=== PATIENT | male | born 1940 | race Caucasian/White ===

== ENCOUNTER 2017-12-25 21:37 | Inpatient (IN) | payer MEDICARE, OTHER, BC ==
[~2017-12-25] VITALS: Ht 167.6 cm; Wt 54.0 kg
[2017-12-25] MEDS ORDERED: BIMA2.5D5 EACHEYE (22:06)
[2017-12-25] MEDS ORDERED: TRIH2TAB3 PO (22:06)
[2017-12-25] MEDS ORDERED: RASA1TAB4 PO (22:06)
[2017-12-25] MEDS ORDERED: CARB-93 PO (22:06)
[2017-12-25] MEDS ORDERED: DORZ10DR11 EACHEYE (22:06)
[2017-12-25] MEDS ORDERED: ACET-73 PO (22:06)
[2017-12-25] MEDS ORDERED: ROPI1TAB2 PO (22:06)
[2017-12-25] MEDS ORDERED: ENTA200T PO (22:06)
[2017-12-25] MEDS ORDERED: IBUP200C76 PO (22:06)
--- NOTE | 2017-12-25 22:23 | NUR ---
Medically Cleared by ERMD
--- NOTE | 2017-12-25 22:40 | NUR ---
Passed report to Mental health ALEC Allen
[2017-12-25 23:15] VITALS: BP 136/76
[2017-12-25] MEDS ORDERED: MAG HYDROX/AL HYDROX/SIMETH 30 ML LIQUID UDC PO PRN (23:30)
[2017-12-25] MEDS ORDERED: MAGNESIUM HYDROXIDE 30 ML LIQUID UDC PO PRN (23:30)
[2017-12-25] MEDS ORDERED: ZOLPIDEM 5 MG TABLET PO PRN (23:30)
[2017-12-25] MEDS ORDERED: ACETAMINOPHEN 325 MG TABLET PO PRN (23:30)
[2017-12-25] MEDS ORDERED: LORAZEPAM 0.5 MG TABLET PO PRN (23:30)
--- NOTE | 2017-12-25 23:30 | NUR ---
GPS: 77 YEAR OLD [place] BORN MALE ADMITTED FROM ER TO M[facility] UNDER DR LÓPEZ AND DR ASIM CARPENTER. DX OF PSYCHOSIS/ GD. A/O X2 TO NAME AND PLACE , COOPERATIVE. V/S WNL. ASSISTED WITH ASL'S. ASSISTED IN BED. PATIENT RESTING IN BED NO AGITATION NOTED AT THIS TIME.BED ALARM ON.BELONGING LIST COMPLETED.NO S/S OF PAIN OR DISCOMFORT NOTED.
--- NOTE | 2017-12-26 06:44 | NUR ---
GPS: REMAIN CALM AND COOPERATIVE WITH NURSING CARE. ASSISTED WITH ADL'S. INCONTINENT. SLEPT 7 HRS THROUGH THE NIGHT. NO AGITATION NOTED @ THIS TIME. CONTINUE MONITORING FOR SAFETY.
[2017-12-26 07:30] VITALS: BP 163/82
[2017-12-26] MEDS ORDERED: CARBIDOPA/LEVODOPA 25-100MG TABLET PO SCH (09:00)
[2017-12-26] MEDS: TRIHEXYPHENIDYL HCL 2 MG TABLET PO SCH ×6 (09:00→20:35)
[2017-12-26] MEDS ORDERED: BIMATOPROST 0.01% OPHT DROP 2.5 ML BOTTLE EACHEYE SCH (09:00)
[2017-12-26] MEDS ORDERED: Medication Not On Formulary EA (Rasagiline Mesylate 1 MG) PO SCH (09:00)
[2017-12-26] MEDS ORDERED: DORZOLAMIDE/TIMOLOL OPHT DROP 10 ML BOTTLE EACHEYE SCH (09:00)
[2017-12-26 09:24] LABS: BASOPHILS % (AUTO) 0.6 % (0.0-2.0); EOSINOPHILS # (AUTO) 0.1 K/uL (0.0-0.7); HEMATOCRIT 40.4 % (36.7-47.1); HEMOGLOBIN 13.7 g/dL (12.5-16.3); LYMPHOCYTES # (AUTO) 1.4 K/uL (20.0-40.0); LYMPHOCYTES % (AUTO) 18.2 % (20.5-51.5); MEAN CORPUSCULAR HEMOGLOBIN 29.8 uug (23.8-33.4); MEAN CORPUSCULAR HGB CONC 34 g/dL (32.5-36.3); MEAN CORPUSCULAR VOLUME 87.9 fL (73.0-96.2); MONOCYTES # (AUTO) 0.4 K/uL (2.0-10.0); MONOCYTES % (AUTO) 4.8 % (0.0-11.0); NEUTROPHILS # (AUTO) 5.9 K/uL (1.8-8.9); NEUTROPHILS % (AUTO) 75.4 % (38.5-71.5); PLATELET COUNT (AUTO) 214 K/uL (152-348); RED BLOOD CELL COUNT(AUTO) 4.59 MIL/uL (4.06-5.63); WHITE BLOOD COUNT (AUTO) 7.9 K/uL (3.6-10.2)
[2017-12-26 09:29] LABS: CARBON DIOXIDE 26 mmol/L (21-32); CHLORIDE 103 mmol/L (98-107); CREATININE 1.1 mg/dL (0.6-1.3); GLUCOSE 91 mg/dL (74-106); POTASSIUM 4.1 mmol/L (3.5-5.1); UREA NITROGEN, BLOOD 22 mg/dL (7-18)
[2017-12-26 09:43] LABS: THYROID STIMULATING HORMONE 2.248 mIU/mL (0.358-3.740)
[2017-12-26] MEDS ORDERED: IBUPROFEN 200 MG TABLET PO PRN (10:00)
[2017-12-26] MEDS ORDERED: ropiniROLE 1 MG TABLET PO SCH (10:00)
[2017-12-26] MEDS ORDERED: CARB-95 PO (13:19)
[2017-12-26] MEDS: ropiniROLE 1 MG TABLET PO SCH ×3 (13:20→20:40)
[2017-12-26] MEDS: ENTACAPONE 200 MG TABLET PO SCH ×3 (13:20→20:36)
[2017-12-26] MEDS: CARBIDOPA/LEVODOPA 25-100MG TABLET PO SCH ×3 (13:21→20:34)
[2017-12-26 17:39] VITALS: BP 119/72
[2017-12-26 20:26] VITALS: BP 120/72
[2017-12-26] MEDS: QUETIAPINE FUMARATE 25 MG TABLET PO SCH (20:34)
[2017-12-26] MEDS: CARBIDOPA/LEVODOPA CR 25-100MG TABLET.SA PO SCH (20:35)
[2017-12-26] MEDS: LATANOPROST OPHT DROP 2.5 ML BOTTLE OP SCH (20:41)
--- NOTE | 2017-12-26 22:34 | NUR ---
PATIENT RECEIVED IN BED AWAKE. PATIENT CALM, COOPERATIVE UPON APPROACH. PATIENT COMPLAINT WITH MEDICATION WITH PROMPTING NOTED. NO AGGRESSIVE OR COMBATIVE BEHAVIOR NOTED WILL CONTINUE TO MONITOR. PATIENT DENIES PAIN AT THIS TIME, WILL CONTINUE TO MONITOR. BED IN LOWEST POSITION, BED LOCKED, AND BED ALARM ON WHILE IN BED.
[2017-12-27] MEDS: ENTACAPONE 200 MG TABLET PO SCH ×5 (02:00→21:00)
[2017-12-27] MEDS: CARBIDOPA/LEVODOPA 25-100MG TABLET PO SCH ×5 (02:00→21:00)
[2017-12-27] MEDS: ropiniROLE 1 MG TABLET PO SCH ×5 (06:22→21:00)
[2017-12-27] MEDS: PANTOPRAZOLE SODIUM 40 MG TABLET.DR PO SCH (06:22)
[2017-12-27 07:30] VITALS: BP 175/97
[2017-12-27] MEDS ORDERED: LORAZEPAM 0.5 MG TABLET PO PRN (08:30)
[2017-12-27] MEDS ORDERED: LORAZEPAM 1 MG TABLET PO PRN (08:45)
[2017-12-27] MEDS ORDERED: HOME MED MISCELLANEOUS PO SCH (09:00)
[2017-12-27] MEDS: NUPLAZID 17 MG PO SCH (09:00)
[2017-12-27] MEDS ORDERED: TRIHEXYPHENIDYL HCL 2 MG TABLET PO SCH (09:00)
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
[2017-12-27] MEDS ORDERED: CLONIDINE TTS 2 PATCH TD SCH (15:30)
[2017-12-27 16:51] VITALS: BP 186/96
[2017-12-27 18:54] VITALS: BP 179/90
[2017-12-27 20:00] VITALS: BP 187/91
[2017-12-27] MEDS: CARBIDOPA/LEVODOPA CR 25-100MG TABLET.SA PO SCH (21:00)
[2017-12-27] MEDS: QUETIAPINE FUMARATE 25 MG TABLET PO SCH (21:00)
[2017-12-27] MEDS: LATANOPROST OPHT DROP 2.5 ML BOTTLE OP SCH (21:00)
--- NOTE | 2017-12-27 21:00 | NUR ---
RECEIVED PATIENT IN HIS BED AWAKE A/O X 1. CALM AT THIS TIME. A SPONGE BATH WAS GIVEN. PT APPEARS TO UNDERSTAND AND SPEAK LIMITED PASHTO. HE WAS NOTED DELUSIONAL, AND PARANOID IDEATION, WITH FLIGHT OF IDEAS, SUSPICIOUS, DISORGANIZED, AND GUARDED. OWN FOOD, JUICE, WATER AND SNACKS WERE OFFERED; HOWEVER, PATIENT REFUSED. HE STATED, "THEY ARE POISON". WHEN OFFERED FOOD AND WATER, HE MOVES HIS HEAD SIDE TO SIDE AND CLOSES HIS LIPS. PT ALSO REFUSED ALL HIS QHS MEDICATION. MULTIPLE REDIRECTION GIVEN, INCLUDING TALKING TO HIS DAUGHTER KATHYA; YET INEFFECTIVE. HIS V/S AT 2030 B/P NOTED ELEVATED 186/96MMHG. CATAPRES 0.2MG TOPICAL PATCH WAS APPLIED AT APPROX 1630. PT IN NO ACUTE DISTRESS. SAFETY EMPHASIS. BED AT LOWEST POSITION, BED ALARM ON. WILL CONTINUE TO OFFER FOOD. MONITOR.
--- NOTE | 2017-12-28 | NUR ---
PATIENT NOTED CALM, RESTING IN HIS BED. FOOD AND WATER WERE OFFERED, HOWEVER, PT CONTINUE REFUSING TO EAT OR DRINK. HE CONTINUE REFUSING MEDICATION WELL. B/P WAS RECHECKED 184/94 AND PULSE 74BPM. PT NOTED IN NO DISTRESS. WILL CONTINUE TO MONITOR CLOSELY.
[2017-12-28 01:47] VITALS: BP 184/94
[2017-12-28] MEDS: CARBIDOPA/LEVODOPA 25-100MG TABLET PO SCH ×5 (02:00→21:00)
[2017-12-28] MEDS: ENTACAPONE 200 MG TABLET PO SCH ×5 (02:00→21:00)
--- NOTE | 2017-12-28 02:47 | NUR ---
PATIENT REFUSED 0200 MEDICATIONS. HOWEVER, HE WAS ABLE TO TAKE SOME SIPS OF WATER. HE WAS NOTED WITH WET DIAPERS. B/P 182/98, PULSE 72BPM AND O2 SAT 97%. WILL CONTINUE TO MONITOR CLOSELY
[2017-12-28 05:44] VITALS: BP 177/97
[2017-12-28 05:46] VITALS: BP 177/97
[2017-12-28] MEDS: ropiniROLE 1 MG TABLET PO SCH ×2 (06:00→09:47)
[2017-12-28] MEDS: PANTOPRAZOLE SODIUM 40 MG TABLET.DR PO SCH (06:40)
--- NOTE | 2017-12-28 07:00 | NUR ---
Patient refused all his 0600 and 0700meds. b/p is 177/ 98 mmHg pulse 76 and SPO2 98%. pt in no acute distress. will continue to monitor closely
[2017-12-28 07:35] LABS: *BILIRUBIN,URIN NEGATIVE (NEGATIVE); *BLOOD, URINE NEGATIVE (NEGATIVE); *CLARITY,URINE CLEAR (CLEAR); *COLOR,URINE YELLOW (YELLOW); *KETONES,URINE 2+ (NEGATIVE); *PROTEIN,URINE TRACE (NEGATIVE); *UROBILINOGEN,URINE 0.2 E.U./dl (NORMAL); LEUKOCYTE ESTERASE ,URINE NEGATIVE (NEGATIVE); NITRITE, URINE NEGATIVE (NEGATIVE); PH,URINE 6.5 (5.0-8.0); UGLUCOSE NEGATIVE (NEGATIVE)
[2017-12-28 08:00] VITALS: BP 177/96
[2017-12-28 08:05] LABS: BACTERIA,URINE NONE SEEN /HPF (NONE SEEN); MUCUS,URINE MODERATE /LPF (0-FEW); RBC,URINE 0-3 /HPF (0-3); SQUAMOUS EPITHELIAL CELL,UR FEW /HPF (NONE SEEN); WBC,URINE 0-3 /HPF (0-3)
[2017-12-28] MEDS: NUPLAZID 17 MG PO SCH (09:00)
[2017-12-28] MEDS ORDERED: NITROGLYCERIN 0.1 MG/HR (=4 CM2) PATCH TD SCH (09:00)
[2017-12-28] MEDS ORDERED: CLONIDINE-TTS 3 PATCH TD SCH (12:00)
--- NOTE | 2017-12-28 15:13 | NUR ---
Initial DC Plan: Patient currently lives at home with his Carolin [[address] [place] [address]; [phone]]. SW will follow up with MD, patient, and patient's Carolin and daughter Tala [[phone]] to discuss most appropriate discharge plans. SW will form a safe and proper discharge.
--- NOTE | 2017-12-28 15:16 | NUR ---
Firearms Reporting: CHRISTIAN submitted Mental Health Report to [facility] on 12/28.
[2017-12-28 16:00] VITALS: BP 164/86
[2017-12-28] MEDS: NITROGLYCERIN 0.1 MG/HR (=4 CM2) PATCH TD SCH (17:06)
[2017-12-28] MEDS ORDERED: INSULIN REGULAR, HUMAN 300 UNIT/3 ML VIAL SQ PRN (18:30)
[2017-12-28] MEDS ORDERED: DEXTROSE 50% 50 ML DISP.SYRIN IV PRN (18:30)
[2017-12-28] MEDS: BLOOD SUGAR DIAGNOSTIC 1 EACH STRIP VI SCH (18:51)
--- NOTE | 2017-12-28 18:53 | NUR ---
Patient not eating his meals, tried to fed but refused by closing his teeth and lips tight. Offered water and juices but continue to refused. 1700 Offered water , opened in front of the patient- drink 100 ml of water. 1800 Daughter, Tala visited patient and very concern that patient is not getting any fluids. Charge nurse called nurse practitioner regarding family's concerns with order lab works, and check blood suhar q 6 hrs. 1837 BS accu check-64 mg/dl, apple juice and abdiaziz crackers given . Will recheck blood sugar again.
[2017-12-28 20:06] LABS: BASOPHILS % (AUTO) 0.4 % (0.0-2.0); EOSINOPHILS % (AUTO) 0.3 % (0.0-7.0); HEMATOCRIT 43.8 % (36.7-47.1); HEMOGLOBIN 14.8 g/dL (12.5-16.3); LYMPHOCYTES # (AUTO) 1.5 K/uL (20.0-40.0); LYMPHOCYTES % (AUTO) 16.1 % (20.5-51.5); MEAN CORPUSCULAR HEMOGLOBIN 29.6 uug (23.8-33.4); MEAN CORPUSCULAR HGB CONC 34 g/dL (32.5-36.3); MEAN CORPUSCULAR VOLUME 87.4 fL (73.0-96.2); MONOCYTES # (AUTO) 0.5 K/uL (2.0-10.0); MONOCYTES % (AUTO) 4.9 % (0.0-11.0); NEUTROPHILS # (AUTO) 7.5 K/uL (1.8-8.9); NEUTROPHILS % (AUTO) 78.3 % (38.5-71.5); PLATELET COUNT (AUTO) 246 K/uL (152-348); RED BLOOD CELL COUNT(AUTO) 5.01 MIL/uL (4.06-5.63); WHITE BLOOD COUNT (AUTO) 9.6 K/uL (3.6-10.2)
[2017-12-28 20:10] LABS: CARBON DIOXIDE 24 mmol/L (21-32); CHLORIDE 103 mmol/L (98-107); CREATININE 1.3 mg/dL (0.6-1.3); GLUCOSE 79 mg/dL (74-106); POTASSIUM 4.2 mmol/L (3.5-5.1); UREA NITROGEN, BLOOD 34 mg/dL (7-18)
[2017-12-28 20:50] VITALS: BP 156/89
[2017-12-28] MEDS: LATANOPROST OPHT DROP 2.5 ML BOTTLE OP SCH (21:00)
[2017-12-28] MEDS: CARBIDOPA/LEVODOPA CR 25-100MG TABLET.SA PO SCH (21:00)
[2017-12-28] MEDS: QUETIAPINE FUMARATE 25 MG TABLET PO SCH (21:00)
--- NOTE | 2017-12-28 21:00 | NUR ---
RECEIVED LAB RESULTS CMP: BUN HAS INCREASED FROM 22 ON 12/26/[address] MARIELOS JONES WAS NOTIFY. AWAITING FOR A CALL BACK.
--- NOTE | 2017-12-28 22:00 | NUR ---
RECEIVED PATIENT IN HIS ROOM, HE WAS ACCOMPANIED BY DAUGHTERS. PATIENT NOTED A/O X1 RESPONSIVE. SHE CONTINUE REFUSING TO EAT AND DRINK, FAMILY ENCOURAGE PATIENT TO EAT AND DRINK. PATIENT NOTED WITH DEPRESSES MOOD, FLAT AFFECT. WE REFUSED ALL HIS [facility] MEDICATION. SAFETY EMPHASIS. AWAITING FOR THE MD TO CALL BACK. WILL CONTINUE TO MONITOR CLOSELY.
--- NOTE | 2017-12-28 23:37 | NUR ---
LEFT MESSAGE TO DR JONES. AWAITING FOR A CALL.
--- NOTE | 2017-12-29 00:51 | NUR ---
PATIENT IS REFUSING ACCU-CHECK. HE STATED, "I KNOW MY RIGHTS AND YOU CAN'T FORCE ME." MULTIPLE REDIRECTION GIVEN, HE CONTINUE REFUSING. HE IS REQUESTING TO CALL HER DAUGHTER DORINA. PER PREVIOUS CONVERSATION, DORINA STATED TO "ONLY CALL IF THERE IS AN EMERGENCY AFTER HOURS." PATIENT WAS ADVISED TO WAIT FOR THE MORNING OR AWAIT FOR HER TO CALL THE UNIT. WILL CONTINUE TO MONITOR CLOSELY.
[2017-12-29] MEDS: ENTACAPONE 200 MG TABLET PO SCH ×5 (02:00→21:00)
[2017-12-29] MEDS: CARBIDOPA/LEVODOPA 25-100MG TABLET PO SCH ×5 (02:00→21:00)
[2017-12-29 05:13] VITALS: BP 158/98
--- NOTE | 2017-12-29 05:24 | NUR ---
PATIENT REFUSED ACCU-CHECK. MULTIPLE REDIRECTION GIVEN, YET INEFFECTIVE. PT STATED, "BACK OFF LADY, BACK OFF." PATIENT WAS ASKED IF HE WANTED TO TALK TO HIS DAUGHTER DORINA? HE STATED, "NO, SHE IS GOING TO BE HERE LATER". PT V/S: B/P 158/98MMHG; PULSE 68BPM, RESPIRATION 18BREATHS/MIN. SPO2 96%. PATIENT NOTED IN NO ACUTE DISTRESS. WILL CONTINUE TO MONITOR CLOSELY.
--- NOTE | 2017-12-29 06:30 | NUR ---
RECEIVED A PHONE CALL FROM DEAN PIZANO NP, SHE STATED THAT SHE NEEDS TO KNOW PATIENT'S BLOOD GLUCOSE AND THAT WE NEED IT TO DO IT AGAINST HIS WILL. BG WAS DONE WITH RESULTS 100. DEAN THEN WAS NOTIFY OF RESULTS. SHE STATED TO START A SALINE LOCK FOR NOW AND THAT SHE WILL CONTACT MD FOR POSSIBLE TRANSFER TO MED SURG. FLOOR. WILL CONTINUE TO MONITOR CLOSELY.
[2017-12-29] MEDS: PANTOPRAZOLE SODIUM 40 MG TABLET.DR PO SCH (07:00)
[2017-12-29] MEDS: BLOOD SUGAR DIAGNOSTIC 1 EACH STRIP VI SCH ×4 (07:03→17:33)
[2017-12-29 07:30] VITALS: BP 148/95
[2017-12-29] MEDS: NUPLAZID 17 MG PO SCH (09:45)
--- NOTE | 2017-12-29 12:44 | NUR ---
1200 Accu check blood sugar - 170 mg/dl. Patient and patient daughter at bedside explained to them that patient need 3 units regular insulin per sliding scale. Patient refused and daughter stated that to wait until patient appetite improved.
[2017-12-29 16:25] VITALS: BP 143/93
[2017-12-29] MEDS: NITROGLYCERIN 0.1 MG/HR (=4 CM2) PATCH TD SCH (17:21)
[2017-12-29] MEDS: QUETIAPINE FUMARATE 25 MG TABLET PO SCH (21:00)
[2017-12-29] MEDS: LATANOPROST OPHT DROP 2.5 ML BOTTLE OP SCH (21:00)
[2017-12-29] MEDS: CARBIDOPA/LEVODOPA CR 25-100MG TABLET.SA PO SCH (21:00)
[2017-12-29 21:12] VITALS: BP 134/81
--- NOTE | 2017-12-29 22:00 | NUR ---
RECEIVED PATIENT IN HIS BED ASLEEP BUT EASILY AROUSED. HE IS A/O X 2. HE WAS NOTED WITH DEPRESSED MOOD, FLAT AFFECT. HE REFUSED ALL HIS QHS MEDICATIONS. MULTIPLE REDIRECTION GIVEN; HOWEVER, INEFFECTIVE. FLUIDS AND SNACKS WERE OFFERED, BUT PT REFUSED. WILL CONTINUE TO MONITOR CLOSELY.
--- NOTE | 2017-12-30 01:06 | NUR ---
PATIENT REFUSED ACCU-CHECK. PER PREVIOUS CONVERSATION WITH DAUGHTER, SHE STATED THAT IF HE REFUSED OR PT IS ASLEEP TO NOT BOTHER HIM AND TO WAIT FOR THE 0600 ACCU-CHECKS.
[2017-12-30] MEDS: CARBIDOPA/LEVODOPA 25-100MG TABLET PO SCH ×5 (02:00→20:52)
[2017-12-30] MEDS: ENTACAPONE 200 MG TABLET PO SCH ×5 (02:00→20:52)
[2017-12-30] MEDS: BLOOD SUGAR DIAGNOSTIC 1 EACH STRIP VI SCH ×5 (06:14→23:46)
[2017-12-30 06:39] VITALS: BP 119/62
[2017-12-30] MEDS: PANTOPRAZOLE SODIUM 40 MG TABLET.DR PO SCH (07:00)
[2017-12-30] MEDS: NUPLAZID 17 MG PO SCH ×2 (09:00→21:39)
[2017-12-30] MEDS ORDERED: OLANZAPINE 10 MG VIAL IM PRN (10:15)
[2017-12-30 12:07] LABS: CARBON DIOXIDE 26 mmol/L (21-32); CHLORIDE 106 mmol/L (98-107); CREATININE 1.3 mg/dL (0.6-1.3); GLUCOSE 130 mg/dL (74-106); MAGNESIUM 2.3 mg/dL (1.8-2.4); PHOSPHOROUS 3.8 mg/dL (2.5-4.9); POTASSIUM 4.1 mmol/L (3.5-5.1); UREA NITROGEN, BLOOD 44 mg/dL (7-18)
[2017-12-30 12:13] LABS: BASOPHILS % (AUTO) 0.2 % (0.0-2.0); EOSINOPHILS % (AUTO) 0.5 % (0.0-7.0); HEMATOCRIT 40.9 % (36.7-47.1); HEMOGLOBIN 13.7 g/dL (12.5-16.3); LYMPHOCYTES # (AUTO) 1.3 K/uL (20.0-40.0); LYMPHOCYTES % (AUTO) 15.9 % (20.5-51.5); MEAN CORPUSCULAR HEMOGLOBIN 29.5 uug (23.8-33.4); MEAN CORPUSCULAR HGB CONC 34 g/dL (32.5-36.3); MEAN CORPUSCULAR VOLUME 87.9 fL (73.0-96.2); MONOCYTES # (AUTO) 0.4 K/uL (2.0-10.0); MONOCYTES % (AUTO) 5.1 % (0.0-11.0); NEUTROPHILS # (AUTO) 6.3 K/uL (1.8-8.9); NEUTROPHILS % (AUTO) 78.3 % (38.5-71.5); PLATELET COUNT (AUTO) 217 K/uL (152-348); RED BLOOD CELL COUNT(AUTO) 4.65 MIL/uL (4.06-5.63); WHITE BLOOD COUNT (AUTO) 8.1 K/uL (3.6-10.2)
[2017-12-30] MEDS: NITROGLYCERIN 0.1 MG/HR (=4 CM2) PATCH TD SCH (17:35)
--- NOTE | 2017-12-30 20:35 | NUR ---
gps: PATIENT IS ON RIESE HELD SEROQUEL 12.5 MG PO DUE TO PATIENT SLEEPING. MD AND CHARGE NURSE MADE AWARE.
--- NOTE | 2017-12-30 20:35 | NUR ---
GPS: held Seroquel 12.5 mg po due to patient very sleepy. charge nurse made aware.
[2017-12-30] MEDS: QUETIAPINE FUMARATE 25 MG TABLET PO SCH (20:52)
[2017-12-30] MEDS: LATANOPROST OPHT DROP 2.5 ML BOTTLE OP SCH (20:52)
[2017-12-30] MEDS: CARBIDOPA/LEVODOPA CR 25-100MG TABLET.SA PO SCH (20:53)
--- NOTE | 2017-12-30 21:42 | NUR ---
gps: patient daughter called and requested to give antipsychotic medication nuplazid 17 mg po to patient. medication given to patient per daughter requested.
[2017-12-30 22:00] VITALS: BP 157/85
[2017-12-31] MEDS: ENTACAPONE 200 MG TABLET PO SCH ×6 (01:36→21:19)
[2017-12-31] MEDS: CARBIDOPA/LEVODOPA 25-100MG TABLET PO SCH ×6 (01:36→21:19)
[2017-12-31] MEDS: PANTOPRAZOLE SODIUM 40 MG TABLET.DR PO SCH (06:03)
[2017-12-31] MEDS: BLOOD SUGAR DIAGNOSTIC 1 EACH STRIP VI SCH ×3 (06:12→17:51)
--- NOTE | 2017-12-31 06:51 | NUR ---
GPS: REMAIN CALM AND COOPERATIVE AND VERY SLEEPY. COMPLIANT WITH MEDICATIONS. SHOWERED THIS MORNING. SLEPT 08:30 HRS THROUGH THE NIGHT. ASSISTED WITH ADL'S. CONTINUE PLAN OF CARE.
[2017-12-31 07:22] LABS: BASOPHILS % (AUTO) 0.3 % (0.0-2.0); EOSINOPHILS % (AUTO) 0.5 % (0.0-7.0); HEMATOCRIT 41.4 % (36.7-47.1); HEMOGLOBIN 13.8 g/dL (12.5-16.3); LYMPHOCYTES # (AUTO) 1.1 K/uL (20.0-40.0); LYMPHOCYTES % (AUTO) 13.9 % (20.5-51.5); MEAN CORPUSCULAR HEMOGLOBIN 29.5 uug (23.8-33.4); MEAN CORPUSCULAR HGB CONC 34 g/dL (32.5-36.3); MEAN CORPUSCULAR VOLUME 88.2 fL (73.0-96.2); MONOCYTES # (AUTO) 0.4 K/uL (2.0-10.0); MONOCYTES % (AUTO) 5.1 % (0.0-11.0); NEUTROPHILS # (AUTO) 6.1 K/uL (1.8-8.9); NEUTROPHILS % (AUTO) 80.2 % (38.5-71.5); PLATELET COUNT (AUTO) 191 K/uL (152-348); RED BLOOD CELL COUNT(AUTO) 4.69 MIL/uL (4.06-5.63); WHITE BLOOD COUNT (AUTO) 7.6 K/uL (3.6-10.2)
[2017-12-31 07:30] VITALS: BP 160/93
[2017-12-31 07:35] LABS: CARBON DIOXIDE 27 mmol/L (21-32); CHLORIDE 108 mmol/L (98-107); CREATININE 1.3 mg/dL (0.6-1.3); GLUCOSE 120 mg/dL (74-106); MAGNESIUM 2.4 mg/dL (1.8-2.4); PHOSPHOROUS 4.7 mg/dL (2.5-4.9); UREA NITROGEN, BLOOD 49 mg/dL (7-18)
[2017-12-31] MEDS: NUPLAZID 17 MG PO SCH (15:13)
[2017-12-31] MEDS: NITROGLYCERIN 0.1 MG/HR (=4 CM2) PATCH TD SCH (17:33)
[2017-12-31 20:20] VITALS: BP 127/84
[2017-12-31] MEDS: LATANOPROST OPHT DROP 2.5 ML BOTTLE OP SCH (20:33)
[2017-12-31] MEDS: CARBIDOPA/LEVODOPA CR 25-100MG TABLET.SA PO SCH (21:19)
[2017-12-31] MEDS: QUETIAPINE FUMARATE 25 MG TABLET PO SCH (21:19)
[2018-01-01] MEDS: BLOOD SUGAR DIAGNOSTIC 1 EACH STRIP VI SCH ×3 (00:13→13:03)
[2018-01-01] MEDS: CARBIDOPA/LEVODOPA 25-100MG TABLET PO SCH ×5 (02:00→20:40)
[2018-01-01] MEDS: ENTACAPONE 200 MG TABLET PO SCH ×5 (02:00→21:00)
[2018-01-01] MEDS: PANTOPRAZOLE SODIUM 40 MG TABLET.DR PO SCH (06:02)
--- NOTE | 2018-01-01 06:36 | NUR ---
GPS: PATIENT COMPLIANT WITH HS PO MEDICATIONS. HELD 2 AM PO MEDICATIONS DUE TO PATIENT WAS SLEEPING. CHARGE NURSE MADE AWARE. PLEASED MEPLEX ON LEFT ELBOW PER DAUGHTER REQUESTED. CHARGE NURSE OK IT. ASSISTED WITH ADL'S. TURN Q 2 HRS FOR SKIN SAFETY AND COMFORT. SLEPT 8 HRS THROUGH THE NIGHT. CONTINUE PLAN OF CARE.
--- NOTE | 2018-01-01 06:40 | NUR ---
GPS: BLOOD SUGAR 112 MG/DL.
[2018-01-01 07:30] VITALS: BP 179/87
[2018-01-01] MEDS: NUPLAZID 17 MG PO SCH (08:03)
[2018-01-01 12:02] VITALS: BP 136/86
[2018-01-01 16:30] VITALS: BP 134/80
[2018-01-01] MEDS: NITROGLYCERIN 0.1 MG/HR (=4 CM2) PATCH TD SCH (17:15)
--- NOTE | 2018-01-01 20:00 | NUR ---
RECEIVED PATIENT IN HIS ROOM IN BED. HE WAS NOTED A/O X1. HE IS ABLE TO MAKE EYE CONTACT; HOWEVER, HE REFUSED TO ANSWER ANY QUESTIONS. HE WAS NOTED WITH DEPRESSED MOOD, FLAT AFFECT. FLUIDS AND JUICE WERE OFFERED PT HAD APPROX 4OZ APPLE JUICE AND APPROX 6OZ WATER. SAFETY WAS EMPHASIS, ENCOURAGE TO VERBALIZED FEELINGS. WILL CONTINUE TO MONITOR.
[2018-01-01] MEDS: QUETIAPINE FUMARATE 25 MG TABLET PO SCH (20:40)
[2018-01-01] MEDS: LATANOPROST OPHT DROP 2.5 ML BOTTLE OP SCH (20:40)
[2018-01-01 20:59] VITALS: BP 160/100
[2018-01-01] MEDS: CARBIDOPA/LEVODOPA CR 25-100MG TABLET.SA PO SCH (21:00)
--- NOTE | 2018-01-01 22:00 | NUR ---
PATIENT REFUSED COMTAN 200MG PO QHS AND SINEMET 25MG/100MG CR PO QHS; HOWEVER; HE WAS ABLE TO COMPLY WITH THE REST OF HIS QHS MEDICATION INCLUDING SEROQUEL 12.5MG PO.
[2018-01-01 22:44] VITALS: BP 113/68
[2018-01-02] MEDS: ENTACAPONE 200 MG TABLET PO SCH ×5 (02:11→21:00)
[2018-01-02] MEDS: CARBIDOPA/LEVODOPA 25-100MG TABLET PO SCH ×5 (02:11→20:10)
--- NOTE | 2018-01-02 02:40 | NUR ---
PATIENT WAS ABLE TO COMPLY WITH Q2AM MEDICATIONS. HE WAS ABLE TO DRINK 4OZ OF WATER AND 4OZ OF APPLE JUICE.
[2018-01-02] MEDS: PANTOPRAZOLE SODIUM 40 MG TABLET.DR PO SCH (06:48)
[2018-01-02] MEDS: BLOOD SUGAR DIAGNOSTIC 1 EACH STRIP VI SCH (06:48)
--- NOTE | 2018-01-02 06:53 | NUR ---
PATIENT SLEPT FOR APPROX 8.00HRS THROUGH THE NIGHT. BS THIS AM IS 99. PATIENT IS STILL SLEEPING; THEREFORE, PROTONIX QAM WAS HELD. WILL CONTINUE TO MONITOR.
[2018-01-02] MEDS ORDERED: INSULIN REGULAR, HUMAN 300 UNIT/3 ML VIAL SQ SCH (07:00)
[2018-01-02] MEDS ORDERED: BLOOD SUGAR DIAGNOSTIC 1 EACH STRIP VI SCH (07:00)
[2018-01-02] MEDS ORDERED: DEXTROSE 50% 50 ML DISP.SYRIN IV PRN ×2 (07:00→07:30)
[2018-01-02 07:30] VITALS: BP 135/82
[2018-01-02] MEDS ORDERED: INSULIN REGULAR, HUMAN 300 UNIT/3 ML VIAL SQ PRN (07:30)
[2018-01-02] MEDS: NUPLAZID 17 MG PO SCH (09:29)
[2018-01-02] MEDS: NITROGLYCERIN 0.1 MG/HR (=4 CM2) PATCH TD SCH (17:17)
[2018-01-02 17:21] VITALS: BP 125/83
[2018-01-02 19:52] VITALS: BP 129/88
[2018-01-02] MEDS: CARBIDOPA/LEVODOPA CR 25-100MG TABLET.SA PO SCH (20:09)
[2018-01-02] MEDS: LATANOPROST OPHT DROP 2.5 ML BOTTLE OP SCH (20:10)
[2018-01-02] MEDS: QUETIAPINE FUMARATE 25 MG TABLET PO SCH (21:36)
--- NOTE | 2018-01-02 21:45 | NUR ---
RECEIVED PATIENT IN HIS ROOM IN BED. HE WAS NOTED AWAKE A/O X 1 RESPONSIVE. HE IS ABLE TO MAKE EYE CONTACT. HE WAS NOTED WITH DEPRESSED MOOD, BLUNTED AFFECT. HE IS INCONTINENT OF BLADDER. PATIENT WAS ABLE TO COMPLY WITH QHS MEDICATION REGIMENT EXCEPT FOR COMTAN 200MG PO QHS. HE HAD APPROX 6 OZ WATER AT THIS TIME. HE REFUSED JUICE AND BOOST. SAFETY WAS EMPHASIS. WILL CONTINUE TO MONITOR CLOSELY.
[2018-01-03] MEDS: CARBIDOPA/LEVODOPA 25-100MG TABLET PO SCH ×5 (01:18→20:05)
[2018-01-03] MEDS: ENTACAPONE 200 MG TABLET PO SCH ×5 (01:18→20:04)
[2018-01-03] MEDS: PANTOPRAZOLE SODIUM 40 MG TABLET.DR PO SCH (06:33)
[2018-01-03] MEDS: BLOOD SUGAR DIAGNOSTIC 1 EACH STRIP VI SCH (06:34)
--- NOTE | 2018-01-03 06:34 | NUR ---
PATIENT SLEPT FOR APPROX 7.30 HRS, HE REFUSED PROTONIX 40MG PO QAM. HE WAS COMPLIANT WITH 0200 MEDICATION. HE WAS ABLE TO DRINK APPROX 8 OZ COLD WATER. BS THIS AM IS 107. PATIENT NOTED AWAKE A/O 1. NO CHANGES IN LOC. WILL CONTINUE TO MONITOR CLOSELY.
[2018-01-03 07:48] VITALS: BP 141/95
[2018-01-03] MEDS: NUPLAZID 17 MG PO SCH (08:03)
--- NOTE | 2018-01-03 09:43 | NUR ---
Discharge Planning Note: Per request of patient's daughter Tala [[phone]], CHRISTIAN faxed the following facilities: [facility] [[phone]], [facility] [[phone]], [facility] [[phone]], and [facility] [[phone]]. CHRISTIAN also faxed [facility] [[phone]] and [facility] [[phone]]. CHRISTIAN will follow up with the facilities regarding placement.
[2018-01-03 16:44] VITALS: BP 150/94
[2018-01-03] MEDS: NITROGLYCERIN 0.1 MG/HR (=4 CM2) PATCH TD SCH (17:19)
[2018-01-03] MEDS: QUETIAPINE FUMARATE 25 MG TABLET PO SCH (20:03)
[2018-01-03] MEDS: LATANOPROST OPHT DROP 2.5 ML BOTTLE OP SCH (20:04)
[2018-01-03] MEDS: CARBIDOPA/LEVODOPA CR 25-100MG TABLET.SA PO SCH (20:04)
[2018-01-03 20:50] VITALS: BP 130/85
--- NOTE | 2018-01-03 21:00 | NUR ---
RECEIVED PATIENT IN HIS ROOM. HE WAS NOTED AWAKE A/O X 1, CALM AND COOPERATIVE WITH Q MEDICATION REGIMEN. HE IS ABLE TO MAKE EYE CONTACT. DEPRESSED MOOD BLUNTED AFFECT NOTED. PATIENT CONTINUE DRINKING COLD WATER. SAFETY WAS EMPHASIS. WILL CONTINUE TO MONITOR.
--- NOTE | 2018-01-03 23:20 | NUR ---
PATIENT NOTED RESTLESS, WANTING TO GET OUT OF HIS BED. PATIENT WAS PLACED IN AN DIMITRI CHAIR CLOSED TO THE NURSING STATION, COLD WATER WAS OFFERED. FOOD AND BOOST WAS OFFERED; HOWEVER PT REFUSED. HE IS REQUESTING TO TALK TO HIS DAUGHTER. MULTIPLE REDIRECTION GIVEN TO WAIT FOR THE MORNING TO TALK TO HER. WILL CONTINUE TO MONITOR CLOSELY.
--- NOTE | 2018-01-04 00:15 | NUR ---
PATIENT CONTINUE REQUESTING TO TALK TO HER DAUGHTER. HE STATED, "I NEED TO TELL MY DAUGHTER WHERE I AM." MULTIPLE REDIRECTION GIVEN. WILL CONTINUE TO MONITOR CLOSELY.
--- NOTE | 2018-01-04 01:03 | NUR ---
PATIENT BACK IN BED RESTING COMFORTABLE. WILL CONTINUE TO MONITOR
[2018-01-04] MEDS: CARBIDOPA/LEVODOPA 25-100MG TABLET PO SCH ×3 (01:55→12:52)
[2018-01-04] MEDS: ENTACAPONE 200 MG TABLET PO SCH ×3 (01:55→12:52)
[2018-01-04] MEDS: BLOOD SUGAR DIAGNOSTIC 1 EACH STRIP VI SCH (06:46)
[2018-01-04] MEDS: PANTOPRAZOLE SODIUM 40 MG TABLET.DR PO SCH ×2 (06:47→10:20)
[2018-01-04 08:00] VITALS: BP 120/84
--- NOTE | 2018-01-04 09:49 | NUR ---
DC Note: Patient will be discharged to [facility] [[address], [place] [address]; ] via ambulance at 1:30pm. CHRISTIAN spoke with Vera at [facility] to confirm discharge plans. CHRISTIAN spoke with patient's daughter Tala [[phone]] who is aware and agreeable to discharge plans. Patient is aware of discharge plans. Patient will follow up with Dr. Will ([place]) and Dr. Payne (Psychiatrist). CHRISTIAN also faxed a referral to [facility] [[phone]] for a medical bed and transfer chair for patient. CHRISTIAN spoke with Nataly at [facility] who stated she will follow up with the family.
[2018-01-04] MEDS: NUPLAZID 17 MG PO SCH (10:19)
--- NOTE | 2018-01-04 14:00 | NUR ---
report called to brianna Valladares at [facility] and pt belongings retured and family aware of transfer pt in no acute distress.
--- NOTE | 2018-01-04 16:35 | NUR ---
patient rec d all instructions and all belongings before transport , pt left in no acute distress , patients own meds were left by ambulance and ambulance will return to [facility] . family aware of transport
== END 2018-01-04 14:30 | DRG 885 ==
LOC: ER 21:44 → GPS 22:40
PROVIDERS: ADMIT Psychiatry & Neurology Psychiatry; ATTEND Registered Nurse
DX: F23 Brief psychotic disorder (principal); F02.80 Dementia in other diseases classified elsewhere, unspecified severity, without behavioral disturbance, psychotic disturbance, mood disturbance, and anxiety; G31.83 Neurocognitive disorder with Lewy bodies; F22 Delusional disorders; Z79.899 Other long term (current) drug therapy; E78.5 Hyperlipidemia, unspecified; R35.0 Frequency of micturition; I11.9 Hypertensive heart disease without heart failure; R93.8 Abnormal findings on diagnostic imaging of other specified body structures
CPT/HCPCS: 36415; 71045; 83735; 84100; 84443; 85025; 87086; 93005; 97110; 97116; 97530; A4663; J1815